=== PATIENT | female | born 1995 | race African-American/Black ===

== ENCOUNTER → 2024-02-09 | Day surgery (SDC) | payer OTHER ==
[~2024-02-09] MED LIST: ACETAMINOPHEN 1000 MG/100 ML 100 ML IV ONE; BUPIVACAINE 0.25% 30ML SDV ONE; DEPO-MEDRO80 MG/1 ML IV; DEXAMETHASONE SOD PHOS 10 MG/1 ML VIAL ONE; FAMOTIDINE 20 MG/2 ML VIAL IV ONE; FENTANYL CITRATE/PF 100MCG/2 ML INJ ONE; KETAMINE 50MG/5ML SYR ONE; LIDOCAINE HCL (LTA) 4 ML SOLN ONE; LIDOCAINE HCL 2% LOCAL INJ 5 ML SDV VIAL INJ ONE; MIDAZOLAM HCL 2 MG/2 ML VIAL ONE; NEXPLANON68 MG; ONDANSETRON HCL INJ 2MG/ML 2ML 2 MG/ML VIAL ONE; PROPOFOL IV EMULSION 10 MG/ML 20 ML VIAL ONE; PROVENTIL HFA6.7 GM INH; ROCURONIUM BROMIDE 10 MG/ML 5ML VIAL IV ONE; SEVOFLURANE INHAL SOLN 250 ML PEN BTL ONE; SUGAMMADEX SODIUM 200 MG/2 ML VIAL IV ONE
[2024-02-09] MEDS: LACTATED RINGER'S 1,000 ML ONE (05:39)
[2024-02-09 08:55] VITALS: BP 138/89; PULSE 93; RESP 17; O2SAT 98
== END | disposition home or self-care (01) ==
LOC: OR 05:25
PROVIDERS: ATTEND Otolaryngology
DX: J35.03 Chronic tonsillitis and adenoiditis (principal); J35.8 Other chronic diseases of tonsils and adenoids; J45.909 Unspecified asthma, uncomplicated; E66.9 Obesity, unspecified; Z79.899 Other long term (current) drug therapy
CPT/HCPCS: 42821; 81025; 88304; J0131; J1100; J2001; J2250; J2405; J2704; J3010; J7121